=== PATIENT | female | born 1945 | race Caucasian/White ===

== ENCOUNTER → 2016-12-05 | Outpatient (CLI) | payer MEDICARE ==
[~2016-12-05] MED LIST: ALBU8.5H2 IH; ASPI-586 PO; BUDE10.2 IH; CETI10CA PO; CHOL200018; CYCL10TA45 PO; FLUT16SP NS; HYDR-3702 PO; HYDR-3811 PO; HYDR-3881 PO; LEVO25TA2 PO; LORA-714 PO; LORA10TA7 PO; METF500T4 PO; OMEP10CA2; OMEP20CA12 PO; OXYC1TAB87 PO; PRM25T PO; RANI150T15 PO; SMV20T PO; SULF-228 PO
--- NOTE | 2016-12-05 14:29 | Diagnostic Imaging Report ---
CLINICAL INDICATION: Patient with persistent sinusitis. EXAM: Axial CT scan of the maxillofacial structures without IV contrast. Coronal and sagittal reformations are performed. COMPARISON: None. FINDINGS: PARANASAL SINUSES: FRONTAL: Hypoplastic. ETHMOID: There is a moderate amount of patchy mucosal thickening. MAXILLARY: There is moderate amount of mucosal thickening in the right maxillary sinus, predominantly on the floor. There is a moderate-sized air-fluid level with frothy secretions in the left maxillary sinus with mild peripheral mucosal thickening. Both ostiomeatal unit regions are obstructed by mucosal thickening. SPHENOID: There is mild mucosal thickening. OTHER PARANASAL SINUS FINDINGS: None. NASAL SEPTUM: There is 6 mm of leftward nasal septal deviation. VISUALIZED TEMPORAL BONE STRUCTURES: Unremarkable. BONY STRUCTURES: Unremarkable. EXTRACRANIAL SOFT TISSUE/ ORBITS: Unremarkable. IMPRESSION: 1: There is diffuse paranasal sinusitis with both maxillary sinuses affected the most. 2: There is leftward nasal septal deviation. Dictated by: Dictated on workstation # [id number]
== END ==
LOC: RAD 13:28
PROVIDERS: ATTEND Family Medicine
DX: R51 Headache (principal); J32.0 Chronic maxillary sinusitis; J34.2 Deviated nasal septum
CPT/HCPCS: 70486

== ENCOUNTER → 2017-01-13 | Outpatient (CLI) | payer MEDICARE | LOC: LAB 12:06 | PROVIDERS: ATTEND Urology | DX: N30.01 Acute cystitis with hematuria (principal) | CPT/HCPCS: 87077; 87088; 87186 ==

== ENCOUNTER → 2017-02-18 | Outpatient (CLI) | payer MEDICARE ==
--- NOTE | 2017-02-19 08:59 | Diagnostic Imaging Report ---
INDICATION: Digital screening mammography bilateral with CAD The current study was also evaluated with a Computer Aided Detection (CAD) system. Comparison is made to examination of 12/08/2014. There is moderate breast parenchymal density, bilaterally. There are also benign calcifications in each breast. Nodular density in the lower inner quadrant of the right breast at middle depth is not significantly changed. There is no evidence of new dominant mass or suspicious calcification. IMPRESSION: Benign findings. Continued physical examination and annual mammographic followup are recommended. ACR BI-RADS Category 2: Benign findings. Result letter will be mailed to the patient. Note: At least 10% of breast cancer is not imaged by mammography. Dictated by: Dictated on workstation # [id number]
== END ==
LOC: RAD 13:14
PROVIDERS: ATTEND Family Medicine
DX: Z12.31 Encounter for screening mammogram for malignant neoplasm of breast (principal)

== ENCOUNTER 2017-03-27 17:49 | Emergency (ER) | payer MEDICARE ==
[~2017-03-27] VITALS: Ht 165.1 cm; Wt 87.1 kg
--- OUTSIDE RECORDS SUMMARY | 2017-03-27 17:54 | XMS REPORT | Continuity of Care Document ---
Author Author [facility] Organization [facility] Address Unknown Phone Unavailable Care Team Providers Care Sales Representative Name Role Phone Petros Vasquez MD PCP [phone] Insurance Providers Payer Name Policy Number Subscriber Name Relationship Medicare A And B [id number] Robin Zhao 18 Self / Same As Patient [facility] [id number] Robin Zhao 18 Self / Same As Patient Chief Complaint and Reason for Visit Chief Complaint Pain Reason for Visit [id number] Back pain [id number] Problems Medical Problems Problem Onset Date Status Acute pain 12/15/2013 Active Blood in the stool Unknown Active Colitis Unknown Active Lumbar strain Unknown Active Back pain Unknown Active Degenerative disc disease, lumbar Unknown Active Medications Medication Dose Route Sig Days/Qty Instructions Order Date Discontinued Date Status Cetirizine Hcl 10 Mg ORAL daily 12/15/13 05/26/15 Discontinued Levothyroxine Sodium 0.1 Mcg ORAL DAILY 12/15/13 Active Cholecalciferol (Vitamin D3) 12/15/13 Active Budesonide/Formoterol Fumarate 10.2 Gm RESPIRATORY (INHALATION) Active Albuterol Sulfate 8.5 Gm RESPIRATORY (INHALATION) prn 12/15/13 Active Omeprazole 12/15/13 12/16/14 Discontinued Trimethoprim/Sulfamethoxazole 1 Ea ORAL TWICE A DAY 30 Qty 12/15/13 Discontinued Hydrocodone Bit/Acetaminophen 1 Ea ORAL q6hrs PRN 15 Qty 12/15/13 Discontinued Metformin Hcl (Glucophage) 500 Mg ORAL TWICE A DAY 12/16/14 Active Loratadine 10 Mg ORAL DAILY 12/16/14 05/26/15 Discontinued Aspirin 81 Mg ORAL DAILY 12/16/14 Active Simvastatin 40 Mg ORAL DAILY 12/16/14 Active Ranitidine Hcl 150 Mg ORAL DAILY 12/16/14 Active Omeprazole 20 Mg ORAL DAILY 05/26/15 Active Hydrocodone Bit/Acetaminophen 1 Each ORAL DIRECTED 05/26/15 Active Fluticasone Propionate 16 Gm NS DIRECTED 05/26/15 Active Loratadine 10 Mg ORAL DAILY 05/26/15 Active Cyclobenzaprine HCl 10 Mg ORAL THREE TIMES A DAY PRN SPASMS 30 Qty 08/31 Active Oxycodone/Acetaminophen 1-2 Tab ORAL 6-8 hours PRN PAIN 21 Qty Active Social History No social history. Hospital Discharge Instructions No hospital discharge instructions. Plan of Care Discharge Date 05/26/15 2:50pm Disposition 01 HOME OR SELF-CARE Condition at Discharge Stable Instructions/Education Provided Chronic Pain Management (ED) Acute Low Back Pain (ED) Prescriptions See Medications Section Referrals Petros Vasquez MD Additional Instructions/Education Follow up with primary care doctor. Return to ER as needed. Some of your test results may not be complete prior to your leaving the Emergency Department. The Emergency Department is not authorized to give test results over the phone. Please contact the doctor's office listed in this packet of information for your final results. Follow up with your primary care physician or return to the Emergency Department for worsening or worrisome symptoms. * Emergency Department phone number: [phone], x [phone]* MEDICAL RECORD If you need copies of your X-rays, call [phone]. If you need copies of your medical record, including lab results, a signed authorization for release of records will be required. A telephone call for release of Health Information is not allowed. BILLING Billing can sometimes be confusing and frustrating. To help avoid confusion in the future, please take a moment to acquaint yourself with the billing parties for services. SERVICE BILLING [facility] [employer] Emergency Room Services [facility] Physician Services [facility] X-rays [facility] Patients will receive bills for services from the appropriate provider. If you have any questions about your [facility] bill, our staff will be happy to assist you. Please call [phone], and ask for the billing department. THANK YOU for choosing [facility] as your emergency care provider! Functional Status No functional status results. Allergies, Adverse Reactions, Alerts Allergen Type Severity Reaction Status Last Updated Codeine Allergy Unknown Active 12/19/14 levofloxacin Allergy Unknown Active 12/19/14 Immunizations No immunization records. Vital Signs Acute Vital Signs Vital Response Date/Time Pulse 74 bpm Respirations 18 Height 5 ft 5 in Weight 206 lb Body Mass Index 34.0 kg/m^2 Results Test Source Date Result Interp. Ref. Range Comments Urine Collection Type May 26, 2015 2:05pm Clean catch Urine collection method Clean Catch Urine Leukocyte Esterase May 26, 2015 2:05pm Negative Negative Urine collection method Clean Catch Urine Urobilinogen May 26, 2015 2:05pm 0.2 mg/dL 0.2-1.0 Urine collection method Clean Catch Urine Bilirubin May 26, 2015 2:05pm Negative Negative Urine collection method Clean Catch Urine Nitrite May 26, 2015 2:05pm Negative Negative Urine collection method Clean Catch Urine Ketones May 26, 2015 2:05pm Negative Negative Urine collection method Clean Catch Urine RBC (Auto) May 26, 2015 2:05pm Negative Negative Urine collection method Clean Catch Urine Glucose (UA) May 26, 2015 2:05pm Negative Negative Urine collection method Clean Catch Urine Protein May 26, 2015 2:05pm Negative Negative Urine collection method Clean Catch Urine Specific [place] May 26, 2015 2:05pm 1.015 1.005-1.030 Urine collection method Clean Catch Urine pH May 26, 2015 2:05pm 6.0 5.0 - 8.0 Urine collection method Clean Catch Urine Clarity May 26, 2015 2:05pm Clear Urine collection method Clean Catch Urine Color May 26, 2015 2:05pm Dark yellow Urine collection method Clean Catch Activated Partial Thromboplast Time December 15, 2013 3:25pm 31.3 SEC N 25.0-39.0 Collected by nurse? N Alanine Aminotransferase (ALT/SGPT) May 26, 2015 1:15pm 23 U/L L 30-65 Albumin May 26, 2015 1:15pm 4.1 g/dL N 3.4-5.0 Albumin/Globulin Ratio May 26, 2015 1:15pm 1.464 N 1.1-1.8 Alkaline Phosphatase May 26, 2015 1:15pm 73 U/L N 38-126 Anion Gap May 26, 2015 1:15pm 14.4 MEQ/L N 3-15 Aspartate Amino Transf (AST/SGOT) May 26, 2015 1:15pm 28 U/L N 15-37 BUN/Creatinine Ratio May 26, 2015 1:15pm 22 H 10-20 Basophils # (Auto) May 26, 2015 1:15pm 0.1 10^3uL Basophils (%) (Auto) May 26, 2015 1:15pm 1 % N 0-2 Blood Urea Nitrogen May 26, 2015 1:15pm 14 mg/dL N 7-18 C-Reactive Protein December 15, 2013 3:25pm 1.70 MG/DL H 0.0-0.9 Collected by nurse? N Calcium Level May 26, 2015 1:15pm 9.0 mg/dL N 8.8-10.8 Calcium/Ionized Calcium Ratio May 26, 2015 1:15pm 4.0 mg/dL N 3.8-4.6 Calculated Osmolality May 26, 2015 1:15pm 272 mosm/L L 280-300 Carbon Dioxide Level May 26, 2015 1:15pm 27 mmol/L N 22-29 Chloride Level May 26, 2015 1:15pm 103 mmol/L N 98-108 Creatine Kinase MB December 15, 2013 3:25pm 0.8 NG/ML N 0.0-6.0 Collected by nurse? N Creatinine May 26, 2015 1:15pm 0.64 mg/dL N 0.6-1.2 D-Dimer December 15, 2013 3:25pm 0.25 ug/mL N 0.00-0.41 Collected by nurse? N Eosinophils # (Auto) May 26, 2015 1:15pm 0.3 10^3uL Eosinophils (%) (Auto) May 26, 2015 1:15pm 3 % N 0-4 Estimat Glomerular Filtration Rate May 26, 2015 1:15pm 110.7 Estimated GFR (Non- May 26, 2015 1:15pm 91.5 Glucose Level May 26, 2015 1:15pm 142 mg/dL H 70-110 Hematocrit May 26, 2015 1:15pm 40.20 % N 35.00-45.00 Hemoglobin May 26, 2015 1:15pm 13.1 g/dL N 12.0-15.5 Lymphocytes # (Auto) May 26, 2015 1:15pm 2.5 X10^3 Lymphocytes (%) (Auto) May 26, 2015 1:15pm 28 % N 20-46 Mean Corpuscular Hemoglobin May 26, 2015 1:15pm 29.0 PG N 26.0-34.0 Mean Corpuscular Hemoglobin Concent May 26, 2015 1:15pm 32.6 g/dL N 31.0-37.0 Mean Corpuscular Volume May 26, 2015 1:15pm 89 FL N 80-100 Mean Platelet Volume May 26, 2015 1:15pm 9.9 FL H 6.0-9.5 Monocytes # (Auto) May 26, 2015 1:15pm 0.6 X10^3 Monocytes (%) (Auto) May 26, 2015 1:15pm 7 % N 3-11 Neutrophils # (Auto) May 26, 2015 1:15pm 5.7 X10^3 Neutrophils (%) (Auto) May 26, 2015 1:15pm 62 % N 51-67 Platelet Count May 26, 2015 1:15pm 244 10^3uL N 150-450 Potassium Level May 26, 2015 1:15pm 4.8 mmol/L N 3.5-5.1 Prothromb Time International Ratio December 15, 2013 3:25pm 1.0 N 0.8- 1.4 Collected by nurse? N Prothrombin Time December 15, 2013 3:25pm 12.7 SEC N 12.3-14.4 Collected by nurse? N Red Blood Count May 26, 2015 1:15pm 4.52 10^6uL N 4.00-5.00 Red Cell Distribution Width May 26, 2015 1:15pm 13.9 % N 11.8-15.6 Sodium Level May 26, 2015 1:15pm 139 mmol/L N 135-150 Thyroid Stimulating Hormone (TSH) December 15, 2013 3:25pm 1.11 UIU/ML N 0.46-4.68 Collected by nurse? N Total Bilirubin May 26, 2015 1:15pm 0.7 mg/dL N 0.1-1.0 Total Creatine Kinase December 15, 2013 3:25pm 51 U/L N 30-135 Collected by nurse? N Total Protein May 26, 2015 1:15pm 6.9 g/dL N 6.4-8.5 Troponin I December 15, 2013 3:25pm < 0.012 ng/mL 0.010-0.080 Collected by nurse? N White Blood Count May 26, 2015 1:15pm 9.17 10^3uL N 4.0-11.0 Procedures No known history of procedures. Encounters Encounter Location Date/Time Registered Emergency Room [facility] 05/26/15 12:39pm Recent Diagnosis
[2017-03-27] MEDS ORDERED: CEPH-507 PO (18:02)
[2017-03-27 18:15] VITALS: BP 152/65
== END 2017-03-27 18:16 | disposition home or self-care (01) ==
LOC: ED 17:55
DX: M79.89 Other specified soft tissue disorders (principal); R23.3 Spontaneous ecchymoses; Z98.890 Other specified postprocedural states
CPT/HCPCS: 99281; 99282